=== PATIENT | male | born 1965 | race Caucasian/White ===

== ENCOUNTER 2021-08-09 10:17 | Inpatient (IN) ==
[2021-08-09] MEDS ORDERED: niCARdipine 25 MG/10 ML VIAL IV ONE (10:33)
[2021-08-09] MEDS ORDERED: DILTIAZEM 100 MG VIAL.ADD IV ONE (10:33)
[2021-08-09] MEDS ORDERED: DILTIAZEM 25 MG/5 ML VIAL IV STA (10:33)
[2021-08-09] MEDS ORDERED: DILTIAZEM 25 MG/5 ML VIAL IV ONE (10:37)
[2021-08-09] MEDS: DILTIAZEM INJ 100 MG in SODIUM CHLORIDE 0.9% 100 ML IV SCH ×2 (10:38→18:57)
[2021-08-09 10:39] LABS: Basophils # 0.1 10*3/uL (0.0-0.2); Basophils % 0.6 % (0.0-0.8); Eosinophils % 0.2 % (0.00-10.9); Hematocrit 50.3 VOL% (42.0-52.0); Hemoglobin 16.5 GM/DL (14.0-18.0); Immature Granulocytes % 0.5 %; Immature Granulocytes Absolute 0.08 #; Lymphocytes # 1.5 10*3/uL (1.4-4.0); Lymphocytes % 9.5 % (21.2-54.2); Mean Corpuscular HGB Conc 32.8 GM/DL (32-36); Mean Corpuscular Volume 90.1 FL (87-102); Mean Platelet Volume 9.7 FL (9.6-12.0); Monocytes # 1.2 10*3/uL (0.11-0.8); Monocytes % 7.7 % (1.7-12.7); Neutrophils % 81.5 % (38.7-73.9); Platelet Count 279 T/CUMM (130-400); Red Blood Count 5.58 MC/CUMM (3.8-5.5); Red Cell Distribution Width 13.7 % (9.3-17.3)
[2021-08-09 10:59] LABS: Albumin 3.6 G/DL (3.4-5.0); Bilirubin,Total 1.8 MG/DL (0.20-1.00); Calcium 9.1 MG/DL (8.5-10.1); Osmolality,Calculated 277.8 MOS/KG (273-304); Potassium 4.1 MMOL/L (3.5-5.1); Total Protein 7.2 G/DL (6.4-8.2)
[2021-08-09 11:15] LABS: Free T4 (Free Thyroxine) 0.92 NG/DL (0.76-1.46); Thyroid Stimulating Hormone 2.08 uIU/ml (0.358-3.74)
[2021-08-09] MEDS ORDERED: ACETAMINOPHEN 325 MG TABLET PO PRN (13:51)
[2021-08-09] MEDS ORDERED: GLUCAGON 1 MG VIAL IM PRN (13:51)
[2021-08-09] MEDS ORDERED: hydrALAZINE 20 MG/1 ML VIAL IV PRN (13:51)
[2021-08-09] MEDS ORDERED: MAGNESIUM SULF RIDER 2 GM/50 ML PREMIX IV ONE (13:51)
[2021-08-09] MEDS ORDERED: ONDANSETRON 4 MG/2 ML VIAL IV PRN (13:51)
[2021-08-09] MEDS ORDERED: DEXTROSE 10% 250 ML BAG IV PRN (13:55)
[2021-08-09] MEDS ORDERED: LACTATED RINGERS 1,000 ML IV SCH (14:00)
[2021-08-09] MEDS ORDERED: ENOXAPARIN 80 MG/0.8 ML SYRINGE SUBCUT ONE (14:02)
[2021-08-09] MEDS ORDERED: PNEUMOCOCCAL VACCINE (13 VALENT) 0.5 ML SYRINGE IM ONE (14:21)
[2021-08-09] MEDS ORDERED: ENOXAPARIN 40 MG/0.4 ML SYRINGE SUBCUT SCH (15:00)
[2021-08-09] MEDS ORDERED: SODIUM CHLORIDE 0.9% 1,000 ML IV SCH (15:00)
[2021-08-09] MEDS: ASCORBIC ACID 500 MG TABLET PO SCH ×2 (15:20→20:38)
[2021-08-09] MEDS: INSULIN LISPRO 100 UNIT/ML SUBCUT SCH ×2 (15:33→20:38)
[2021-08-09 17:22] LABS: Mucus,Urine Few /LPF (Occasional); RBC,Urine 2 /HPF (0-4); Squamous Epithelial Cell,Urine Occasional /HPF (0-10)
[2021-08-09 17:27] LABS: Bilirubin,Urine Small mg/dL (Negative); Blood, Urine Trace mg/dL (Negative); Glucose,Urine (UA) >1000 mg/dL (Negative); Ketones,Urine 15 mg/dL (Negative); Nitrite,Urine Negative (Negative); Protein,Urine 100 mg/dL (Negative); Urine Appearance Clear (Clear); Urine Color Yellow (Yellow); Urine Specific Gravity 1.025 (1.001-1.035)
[2021-08-09] MEDS: APIXABAN 5 MG TABLET PO SCH (20:38)
[2021-08-09] MEDS: carvediloL 6.25 MG TABLET PO SCH (20:38)
[2021-08-10 05:37] LABS: Basophils # 0.1 10*3/uL (0.0-0.2); Basophils % 0.8 % (0.0-0.8); Eosinophils # 0.2 10*3/uL (0.0-0.87); Eosinophils % 1.4 % (0.00-10.9); Hematocrit 50.8 VOL% (42.0-52.0); Hemoglobin 16.3 GM/DL (14.0-18.0); Immature Granulocytes % 0.5 %; Immature Granulocytes Absolute 0.06 #; Lymphocytes # 1.5 10*3/uL (1.4-4.0); Lymphocytes % 13.3 % (21.2-54.2); Mean Corpuscular HGB Conc 32.1 GM/DL (32-36); Mean Corpuscular Volume 91.9 FL (87-102); Mean Platelet Volume 9.9 FL (9.6-12.0); Monocytes # 0.9 10*3/uL (0.11-0.8); Platelet Count 235 T/CUMM (130-400); Red Blood Count 5.53 MC/CUMM (3.8-5.5); Red Cell Distribution Width 14.1 % (9.3-17.3)
[2021-08-10 05:55] LABS: Calcium 8.8 MG/DL (8.5-10.1); Osmolality,Calculated 281.7 MOS/KG (273-304); Potassium 4.2 MMOL/L (3.5-5.1); Risk Ratio 3.37
[2021-08-10] MEDS: ASPIRIN CHEW 81 MG TABLET PO SCH (08:17)
[2021-08-10] MEDS: ASCORBIC ACID 500 MG TABLET PO SCH ×2 (08:17→20:23)
[2021-08-10] MEDS: APIXABAN 5 MG TABLET PO SCH (08:17)
[2021-08-10] MEDS: carvediloL 6.25 MG TABLET PO SCH ×2 (08:17→20:23)
[2021-08-10] MEDS: INSULIN LISPRO 100 UNIT/ML SUBCUT SCH ×4 (08:18→20:29)
[2021-08-10] MEDS ORDERED: lisinopriL 10 MG TABLET PO SCH (09:00)
[2021-08-10] MEDS ORDERED: POTASSIUM CHLORIDE RIDER 10 MEQ/100 ML PREMIX IV PRN (13:01)
[2021-08-10] MEDS ORDERED: MAGNESIUM SULF RIDER 2 GM/50 ML PREMIX IV PRN (13:01)
[2021-08-10] MEDS: DAPAGLIFLOZIN 10 MG TABLET PO SCH (13:24)
[2021-08-10] MEDS: SPIRONOLACTONE 25 MG TABLET PO SCH (13:24)
[2021-08-11 03:43] LABS: Basophils # 0.1 10*3/uL (0.0-0.2); Basophils % 0.8 % (0.0-0.8); Eosinophils # 0.2 10*3/uL (0.0-0.87); Eosinophils % 1.3 % (0.00-10.9); Hematocrit 48.2 VOL% (42.0-52.0); Hemoglobin 15.5 GM/DL (14.0-18.0); Immature Granulocytes % 0.4 %; Immature Granulocytes Absolute 0.05 #; Lymphocytes # 2.1 10*3/uL (1.4-4.0); Lymphocytes % 15.5 % (21.2-54.2); Mean Corpuscular HGB Conc 32.2 GM/DL (32-36); Mean Corpuscular Volume 91.6 FL (87-102); Mean Platelet Volume 9.8 FL (9.6-12.0); Monocytes % 7.7 % (1.7-12.7); Neutrophils % 74.3 % (38.7-73.9); Platelet Count 241 T/CUMM (130-400); Red Blood Count 5.26 MC/CUMM (3.8-5.5); Red Cell Distribution Width 13.7 % (9.3-17.3); White Blood Count 13.3 T/CUMM (4-12)
[2021-08-11 04:02] LABS: Calcium 9.3 MG/DL (8.5-10.1); Osmolality,Calculated 281.5 MOS/KG (273-304); Potassium 3.9 MMOL/L (3.5-5.1)
[2021-08-11] MEDS ORDERED: SODIUM CHLORIDE 0.9% 1,000 ML IV SCH (06:00)
[2021-08-11] MEDS ORDERED: propofoL 200 MG/20 ML VIAL IV ONE ×2 (07:15→07:51)
[2021-08-11] MEDS ORDERED: ETOMIDATE 40 MG/20 ML VIAL IV ONE (07:15)
[2021-08-11] MEDS ORDERED: LIDOCAINE 2% 5 ML VIAL ONE (07:15)
[2021-08-11] MEDS ORDERED: LOSARTAN 25 MG TABLET PO SCH (09:00)
[2021-08-11] MEDS: SPIRONOLACTONE 25 MG TABLET PO SCH (09:22)
[2021-08-11] MEDS: carvediloL 6.25 MG TABLET PO SCH ×2 (09:22→20:39)
[2021-08-11] MEDS: ASCORBIC ACID 500 MG TABLET PO SCH ×2 (09:22→20:39)
[2021-08-11] MEDS: ASPIRIN CHEW 81 MG TABLET PO SCH (09:22)
[2021-08-11] MEDS: DAPAGLIFLOZIN 10 MG TABLET PO SCH (09:22)
[2021-08-11] MEDS: ENOXAPARIN 120 MG/0.8 ML SYRINGE SUBCUT SCH ×2 (09:23→20:40)
[2021-08-11] MEDS: INSULIN LISPRO 100 UNIT/ML SUBCUT SCH ×4 (09:23→20:40)
[2021-08-12 05:33] LABS: Basophils # 0.1 10*3/uL (0.0-0.2); Basophils % 0.6 % (0.0-0.8); Eosinophils # 0.2 10*3/uL (0.0-0.87); Eosinophils % 1.3 % (0.00-10.9); Hematocrit 50.4 VOL% (42.0-52.0); Hemoglobin 16.5 GM/DL (14.0-18.0); Immature Granulocytes % 0.6 %; Immature Granulocytes Absolute 0.07 #; Lymphocytes % 15.5 % (21.2-54.2); Mean Corpuscular HGB Conc 32.7 GM/DL (32-36); Mean Corpuscular Volume 89.8 FL (87-102); Monocytes # 1.1 10*3/uL (0.11-0.8); Monocytes % 8.7 % (1.7-12.7); Neutrophils % 73.3 % (38.7-73.9); Platelet Count 264 T/CUMM (130-400); Red Blood Count 5.61 MC/CUMM (3.8-5.5); Red Cell Distribution Width 13.7 % (9.3-17.3); White Blood Count 12.7 T/CUMM (4-12)
[2021-08-12 06:02] LABS: Calcium 9.2 MG/DL (8.5-10.1); Osmolality,Calculated 278.7 MOS/KG (273-304); Potassium 4.3 MMOL/L (3.5-5.1)
[2021-08-12 06:08] LABS: Albumin 3.4 G/DL (3.4-5.0); Bilirubin,Direct 0.21 MG/DL (0.0-0.20); Bilirubin,Indirect 1.3 MG/DL (0.0-1.0); Bilirubin,Total 1.5 MG/DL (0.20-1.00)
[2021-08-12] MEDS: INSULIN LISPRO 100 UNIT/ML SUBCUT SCH ×4 (07:38→21:26)
[2021-08-12] MEDS ORDERED: LIDOCAINE 1%/EPI INJ 20 ML VIAL ONE (07:57)
[2021-08-12] MEDS ORDERED: HEPARIN/NACL 0.9% 2 UNITS/ML 2,000 UNIT/1,000 ML BAG IV ONE (07:57)
[2021-08-12] MEDS ORDERED: diphenhydrAMINE CAP 25 MG CAPSULE ONE (07:58)
[2021-08-12] MEDS ORDERED: DIAZEPAM 5 MG TABLET ONE (07:58)
[2021-08-12] MEDS ORDERED: DIAZEPAM 5 MG TABLET PO ONE ×2 (08:07→09:30)
[2021-08-12] MEDS ORDERED: diphenhydrAMINE CAP 50 MG CAPSULE PO ONE ×2 (08:08→09:30)
[2021-08-12] MEDS: carvediloL 6.25 MG TABLET PO SCH ×2 (08:13→21:25)
[2021-08-12] MEDS: SPIRONOLACTONE 25 MG TABLET PO SCH (08:13)
[2021-08-12] MEDS: SACUBITRIL/VALSARTAN 49-51 MG TABLET PO SCH ×2 (08:13→21:26)
[2021-08-12] MEDS: ASPIRIN CHEW 81 MG TABLET PO SCH (08:13)
[2021-08-12] MEDS: DAPAGLIFLOZIN 10 MG TABLET PO SCH (08:13)
[2021-08-12] MEDS: ENOXAPARIN 120 MG/0.8 ML SYRINGE SUBCUT SCH ×2 (08:14→21:26)
[2021-08-12] MEDS: ASCORBIC ACID 500 MG TABLET PO SCH ×2 (08:14→21:26)
[2021-08-12] MEDS ORDERED: MIDAZOLAM 2 MG/2 ML VIAL ONE (08:18)
[2021-08-12] MEDS ORDERED: fentaNYL 100 MCG/2 ML VIAL ONE (08:19)
[2021-08-12] MEDS ORDERED: GLUCAGON 1 MG VIAL IM PRN (10:06)
[2021-08-12] MEDS ORDERED: DEXTROSE 50% 25 GM/50 ML VIAL IV PRN (10:06)
[2021-08-12] MEDS: ROSUVASTATIN 20 MG TABLET PO SCH (10:11)
[2021-08-12] MEDS: SODIUM CHLORIDE 0.9% 1,000 ML IV SCH (10:33)
[2021-08-12] MEDS ORDERED: HEPARIN DRIP 25,000 UNITS/500 ML PREMIX IV SCH (12:00)
[2021-08-12] MEDS: CHLORHEXIDINE 0.12% ORAL RINSE 60 ML BOTTLE SWISH/SPIT SCH (21:41)
[2021-08-13 04:44] LABS: Basophils # 0.1 10*3/uL (0.0-0.2); Eosinophils # 0.2 10*3/uL (0.0-0.87); Eosinophils % 1.8 % (0.00-10.9); Hemoglobin 17.4 GM/DL (14.0-18.0); Immature Granulocytes % 0.7 %; Immature Granulocytes Absolute 0.09 #; Lymphocytes # 1.9 10*3/uL (1.4-4.0); Lymphocytes % 14.8 % (21.2-54.2); Mean Corpuscular HGB Conc 32.2 GM/DL (32-36); Mean Corpuscular Volume 91.7 FL (87-102); Mean Platelet Volume 9.6 FL (9.6-12.0); Monocytes # 1.2 10*3/uL (0.11-0.8); Monocytes % 9.4 % (1.7-12.7); Neutrophils % 72.3 % (38.7-73.9); Platelet Count 322 T/CUMM (130-400); Red Blood Count 5.89 MC/CUMM (3.8-5.5); Red Cell Distribution Width 13.6 % (9.3-17.3); White Blood Count 12.5 T/CUMM (4-12)
[2021-08-13 05:10] LABS: Calcium 9.2 MG/DL (8.5-10.1); Osmolality,Calculated 279.8 MOS/KG (273-304)
[2021-08-13] MEDS: SACUBITRIL/VALSARTAN 49-51 MG TABLET PO SCH ×2 (08:57→21:01)
[2021-08-13] MEDS: ENOXAPARIN 120 MG/0.8 ML SYRINGE SUBCUT SCH ×2 (08:57→22:07)
[2021-08-13] MEDS: INSULIN LISPRO 100 UNIT/ML SUBCUT SCH ×4 (08:57→22:06)
[2021-08-13] MEDS: SPIRONOLACTONE 25 MG TABLET PO SCH (08:58)
[2021-08-13] MEDS: ASCORBIC ACID 500 MG TABLET PO SCH ×2 (08:58→21:01)
[2021-08-13] MEDS: DAPAGLIFLOZIN 10 MG TABLET PO SCH (08:58)
[2021-08-13] MEDS: ASPIRIN CHEW 81 MG TABLET PO SCH (08:58)
[2021-08-13] MEDS: ROSUVASTATIN 20 MG TABLET PO SCH (08:58)
[2021-08-13] MEDS: CHLORHEXIDINE 0.12% ORAL RINSE 60 ML BOTTLE SWISH/SPIT SCH ×2 (08:59→21:01)
[2021-08-13] MEDS: carvediloL 6.25 MG TABLET PO SCH (09:03)
[2021-08-13] MEDS: SODIUM CHLORIDE 0.9% 1,000 ML IV SCH (10:31)
[2021-08-13] MEDS ORDERED: carvediloL 6.25 MG TABLET PO ONE (11:04)
[2021-08-13] MEDS: carvediloL 12.5 MG TABLET PO SCH (21:01)
[2021-08-14] MEDS: INSULIN LISPRO 100 UNIT/ML SUBCUT SCH ×4 (07:44→21:47)
[2021-08-14] MEDS: ENOXAPARIN 120 MG/0.8 ML SYRINGE SUBCUT SCH ×2 (08:40→21:48)
[2021-08-14] MEDS: carvediloL 12.5 MG TABLET PO SCH ×2 (08:40→21:28)
[2021-08-14] MEDS: CHLORHEXIDINE 0.12% ORAL RINSE 60 ML BOTTLE SWISH/SPIT SCH ×2 (08:40→21:48)
[2021-08-14] MEDS: SACUBITRIL/VALSARTAN 49-51 MG TABLET PO SCH ×2 (08:40→21:28)
[2021-08-14] MEDS: ASPIRIN CHEW 81 MG TABLET PO SCH (08:40)
[2021-08-14] MEDS: DAPAGLIFLOZIN 10 MG TABLET PO SCH (08:40)
[2021-08-14] MEDS: ASCORBIC ACID 500 MG TABLET PO SCH ×2 (08:40→21:48)
[2021-08-14] MEDS: SPIRONOLACTONE 25 MG TABLET PO SCH (08:40)
[2021-08-14] MEDS: ROSUVASTATIN 20 MG TABLET PO SCH (08:40)
[2021-08-14] MEDS: SODIUM CHLORIDE 0.9% 1,000 ML IV SCH (09:47)
[2021-08-15 05:43] LABS: Calcium 9.2 MG/DL (8.5-10.1); Potassium 4.4 MMOL/L (3.5-5.1)
[2021-08-15] MEDS: SACUBITRIL/VALSARTAN 49-51 MG TABLET PO SCH ×2 (08:36→21:34)
[2021-08-15] MEDS: INSULIN LISPRO 100 UNIT/ML SUBCUT SCH ×4 (08:36→21:34)
[2021-08-15] MEDS: DAPAGLIFLOZIN 10 MG TABLET PO SCH (08:36)
[2021-08-15] MEDS: ENOXAPARIN 120 MG/0.8 ML SYRINGE SUBCUT SCH ×2 (08:36→21:34)
[2021-08-15] MEDS: ASPIRIN CHEW 81 MG TABLET PO SCH (08:36)
[2021-08-15] MEDS: glipiZIDE 5 MG TABLET PO SCH (08:36)
[2021-08-15] MEDS: SPIRONOLACTONE 25 MG TABLET PO SCH (08:37)
[2021-08-15] MEDS: CHLORHEXIDINE 0.12% ORAL RINSE 60 ML BOTTLE SWISH/SPIT SCH ×2 (08:37→21:34)
[2021-08-15] MEDS: carvediloL 25 MG TABLET PO SCH ×2 (08:37→21:34)
[2021-08-15] MEDS: ROSUVASTATIN 20 MG TABLET PO SCH (08:37)
[2021-08-15] MEDS: ASCORBIC ACID 500 MG TABLET PO SCH ×2 (08:37→21:34)
[2021-08-15] MEDS: SODIUM CHLORIDE 0.9% 1,000 ML IV SCH (09:33)
[2021-08-15] MEDS: CETIRIZINE 10 MG TABLET PO SCH (10:09)
[2021-08-16] MEDS: ENOXAPARIN 120 MG/0.8 ML SYRINGE SUBCUT SCH (08:24)
[2021-08-16] MEDS: ASPIRIN CHEW 81 MG TABLET PO SCH (08:24)
[2021-08-16] MEDS: INSULIN LISPRO 100 UNIT/ML SUBCUT SCH ×4 (08:24→20:51)
[2021-08-16] MEDS: carvediloL 25 MG TABLET PO SCH ×2 (08:25→20:51)
[2021-08-16] MEDS: DAPAGLIFLOZIN 10 MG TABLET PO SCH (08:25)
[2021-08-16] MEDS: SACUBITRIL/VALSARTAN 49-51 MG TABLET PO SCH ×2 (08:25→20:51)
[2021-08-16] MEDS: glipiZIDE 5 MG TABLET PO SCH (08:26)
[2021-08-16] MEDS: ROSUVASTATIN 20 MG TABLET PO SCH (08:26)
[2021-08-16] MEDS: CHLORHEXIDINE 0.12% ORAL RINSE 60 ML BOTTLE SWISH/SPIT SCH ×2 (08:26→20:51)
[2021-08-16] MEDS: CETIRIZINE 10 MG TABLET PO SCH (08:26)
[2021-08-16] MEDS: ASCORBIC ACID 500 MG TABLET PO SCH ×2 (08:26→20:51)
[2021-08-16] MEDS: SPIRONOLACTONE 25 MG TABLET PO SCH (08:26)
[2021-08-16] MEDS ORDERED: AZITHROMYCIN 250 MG TABLET PO ONE (09:53)
[2021-08-16] MEDS ORDERED: cefTRIAXone 1,000 MG in SODIUM CHLORIDE 0.9% 100 ML IV SCH (10:00)
[2021-08-16] MEDS ORDERED: CEFUROXIME INJ 1,500 MG in SODIUM CHLORIDE 0.9% 100 ML IV ONE (10:06)
[2021-08-16 10:21] LABS: Basophils # 0.1 10*3/uL (0.0-0.2); Basophils % 0.8 % (0.0-0.8); Eosinophils % 0.3 % (0.00-10.9); Hematocrit 48.2 VOL% (42.0-52.0); Hemoglobin 15.8 GM/DL (14.0-18.0); Immature Granulocytes % 0.6 %; Immature Granulocytes Absolute 0.05 #; Lymphocytes # 0.8 10*3/uL (1.4-4.0); Lymphocytes % 8.6 % (21.2-54.2); Mean Corpuscular HGB Conc 32.8 GM/DL (32-36); Mean Corpuscular Volume 90.3 FL (87-102); Mean Platelet Volume 9.4 FL (9.6-12.0); Monocytes # 1.2 10*3/uL (0.11-0.8); Monocytes % 13.3 % (1.7-12.7); Neutrophils % 76.4 % (38.7-73.9); Platelet Count 235 T/CUMM (130-400); Red Blood Count 5.34 MC/CUMM (3.8-5.5); Red Cell Distribution Width 13.7 % (9.3-17.3); White Blood Count 9.1 T/CUMM (4-12)
[2021-08-16 10:42] LABS: Bilirubin,Total 0.9 MG/DL (0.20-1.00); Calcium 8.9 MG/DL (8.5-10.1); Osmolality,Calculated 280.2 MOS/KG (273-304); Potassium 4.2 MMOL/L (3.5-5.1); Total Protein 7.1 G/DL (6.4-8.2)
[2021-08-16] MEDS: CHLORHEXIDINE 4% SOLN 118 ML BOTTLE TOP SCH ×2 (15:02→21:51)
[2021-08-16 16:34] LABS: Arterial Base Excess iSTAT 0 MMOL/L (-2.5-2.5); Arterial O2 Saturation iSTAT 96 % (95-100); Arterial PCO2 iSTAT 38 MM HG (35-48); Arterial PO2 iSTAT 85 MM HG (80-95); Arterial Total CO2 iSTAT 25 MMO/L (23-27); Arterial pH iSTAT 7.409 (7.35-7.45)
[2021-08-17] MEDS ORDERED: PAPAVERINE 60 MG/2 ML VIAL ONE (04:23)
[2021-08-17] MEDS ORDERED: VANCOMYCIN 1,000 MG VIAL ONE (04:24)
[2021-08-17] MEDS ORDERED: VANCOMYCIN 500 MG VIAL ONE (04:24)
[2021-08-17 04:32] LABS: Basophils # 0.1 10*3/uL (0.0-0.2); Basophils % 0.9 % (0.0-0.8); Eosinophils # 0.2 10*3/uL (0.0-0.87); Eosinophils % 1.6 % (0.00-10.9); Hematocrit 47.6 VOL% (42.0-52.0); Hemoglobin 15.2 GM/DL (14.0-18.0); Immature Granulocytes % 0.5 %; Immature Granulocytes Absolute 0.05 #; Lymphocytes # 1.5 10*3/uL (1.4-4.0); Lymphocytes % 15.7 % (21.2-54.2); Mean Corpuscular HGB Conc 31.9 GM/DL (32-36); Mean Corpuscular Volume 92.1 FL (87-102); Mean Platelet Volume 9.8 FL (9.6-12.0); Monocytes # 1.3 10*3/uL (0.11-0.8); Monocytes % 14.3 % (1.7-12.7); Platelet Count 274 T/CUMM (130-400); Red Blood Count 5.17 MC/CUMM (3.8-5.5); Red Cell Distribution Width 13.6 % (9.3-17.3); White Blood Count 9.2 T/CUMM (4-12)
[2021-08-17] MEDS: CHLORHEXIDINE 4% SOLN 118 ML BOTTLE TOP SCH (04:44)
[2021-08-17 04:53] LABS: Calcium 8.8 MG/DL (8.5-10.1); Osmolality,Calculated 280.7 MOS/KG (273-304); Potassium 4.4 MMOL/L (3.5-5.1)
[2021-08-17] MEDS ORDERED: DIAZEPAM 5 MG TABLET PO ONE (05:30)
[2021-08-17] MEDS ORDERED: FAMOTIDINE 20 MG TABLET PO ONE (05:30)
[2021-08-17] MEDS ORDERED: AMINOCAPROIC ACID 5,000 MG/20 ML VIAL ONE (06:02)
[2021-08-17] MEDS ORDERED: SEVOFLURANE 1 UNIT/15 MINUTE INH ONE ×5 (06:02→11:55)
[2021-08-17] MEDS ORDERED: MINERAL OIL/PETROLATUM OPH OINT 3.5 GM TUBE ONE (06:02)
[2021-08-17] MEDS ORDERED: CALCIUM CHLORIDE 1,000 MG/10 ML VIAL IV ONE ×2 (06:02→11:34)
[2021-08-17] MEDS ORDERED: ETOMIDATE 40 MG/20 ML VIAL IV ONE (06:02)
[2021-08-17] MEDS ORDERED: NITROGLYCERIN DRIP 50 MG/250 ML BOTTLE IV ONE (06:02)
[2021-08-17] MEDS ORDERED: SODIUM CHLORIDE 0.9% 1,000 ML IV ONE (06:02)
[2021-08-17] MEDS ORDERED: SUFentanil 250 MCG/5 ML AMP ONE (06:02)
[2021-08-17] MEDS ORDERED: PHENYLEPHRINE DRIP 20 MG/250 ML PREMIX IV ONE (06:02)
[2021-08-17] MEDS ORDERED: MIDAZOLAM 10 MG/2 ML VIAL ONE ×3 (06:02)
[2021-08-17] MEDS ORDERED: LACTATED RINGERS 1,000 ML IV ONE (06:02)
[2021-08-17] MEDS ORDERED: ePHEDrine 50 MG/ML VIAL ONE (06:02)
[2021-08-17] MEDS ORDERED: VECURONIUM 10 MG VIAL IV ONE (06:02)
[2021-08-17] MEDS ORDERED: HEPARIN/NACL 0.9% 2 UNITS/ML 1,000 UNIT/500 ML BAG IV ONE (06:02)
[2021-08-17] MEDS ORDERED: LIDOCAINE 2% 5 ML VIAL ONE ×2 (06:02→13:07)
[2021-08-17] MEDS ORDERED: SODIUM CHLORIDE 0.9% 250 ML IV ONE ×2 (06:02→11:55)
[2021-08-17] MEDS: CEFUROXIME INJ 1,500 MG in SODIUM CHLORIDE 0.9% 100 ML IV ONE ×2 (07:30→08:50)
[2021-08-17 07:48] LABS: ABG Base Excess -1.1 MMOL/L (-2.5-2.5); ABG HCO3 23.6 MMOL/L (20-26); ABG Oxygen Saturation 99.7 % (95-100); ABG PCO2 43.6 MM HG (35-48); Glucose Heart Surgery 165 MG/DL (74-106); Hematocrit Heart Surgery 46.6 PERCENT (42-52); Hemoglobin Heart Surgery 15.2 G/DL (14.0-18.0); Ionized Calcium Arterial 1.17 MMOL/L (1.21-1.46); PCO2 Patient Temp Arterial 43.6 MMHG; Patient Temperature 37 CELCIUS; Potassium Heart/CVR 4.4 MMOL/L (3.5-5.1); Sodium Heart/CVR 137 MMOL/L (135-145)
[2021-08-17] MEDS ORDERED: ESMOLOL 100 MG/10 ML VIAL IV ONE (07:56)
[2021-08-17] MEDS ORDERED: DOBUTamine 500 MG/250 ML PREMIX IV ONE ×2 (08:21→12:30)
[2021-08-17] MEDS ORDERED: AMIODARONE 150 MG/3 ML VIAL ONE (08:21)
[2021-08-17] MEDS ORDERED: SODIUM BICARBONATE 50 MEQ/50 ML VIAL IV ONE ×2 (08:32→13:09)
[2021-08-17] MEDS ORDERED: POTASSIUM CHLORIDE RIDER 20 MEQ/100 ML PREMIX IV ONE (08:33)
[2021-08-17] MEDS ORDERED: CALCIUM CHLORIDE 1,000 MG/10 ML SYRINGE IV ONE (08:33)
[2021-08-17] MEDS ORDERED: NITROPRUSSIDE 50 MG/2 ML VIAL ONE (08:33)
[2021-08-17] MEDS ORDERED: PHENYLEPHRINE DRIP 40 MG/250 ML PREMIX IV ONE (08:33)
[2021-08-17 08:35] LABS: Mucus,Urine Occasional /LPF (Occasional); RBC,Urine 1 /HPF (0-4); Squamous Epithelial Cell,Urine Occasional /HPF (0-10)
[2021-08-17 08:39] LABS: Bilirubin,Urine Negative (Negative); Blood, Urine Trace mg/dL (Negative); Glucose,Urine (UA) 500 mg/dL (Negative); Ketones,Urine 40 mg/dL (Negative); Nitrite,Urine Negative (Negative); Protein,Urine Negative (Negative); Urine Appearance Clear (Clear); Urine Color Yellow (Yellow); Urine pH 5.5 (4.5-8.0)
[2021-08-17] MEDS: SPIRONOLACTONE 25 MG TABLET PO SCH (08:51)
[2021-08-17] MEDS: glipiZIDE 5 MG TABLET PO SCH (08:51)
[2021-08-17] MEDS: INSULIN LISPRO 100 UNIT/ML SUBCUT SCH ×2 (08:51→18:07)
[2021-08-17] MEDS: ASPIRIN CHEW 81 MG TABLET PO SCH (08:51)
[2021-08-17] MEDS: carvediloL 25 MG TABLET PO SCH (08:51)
[2021-08-17] MEDS: DAPAGLIFLOZIN 10 MG TABLET PO SCH (08:52)
[2021-08-17] MEDS: ROSUVASTATIN 20 MG TABLET PO SCH (08:52)
[2021-08-17] MEDS: CHLORHEXIDINE 0.12% ORAL RINSE 60 ML BOTTLE SWISH/SPIT SCH ×2 (08:52→20:48)
[2021-08-17] MEDS: CHOLECALCIFEROL 1,000 UNIT TABLET PO SCH (08:52)
[2021-08-17] MEDS: SACUBITRIL/VALSARTAN 49-51 MG TABLET PO SCH (08:52)
[2021-08-17] MEDS: ASCORBIC ACID 500 MG TABLET PO SCH ×2 (08:52→20:48)
[2021-08-17] MEDS: AZITHROMYCIN 250 MG TABLET PO SCH (08:53)
[2021-08-17] MEDS: CETIRIZINE 10 MG TABLET PO SCH (08:53)
[2021-08-17] MEDS ORDERED: ZINC GLUCONATE 50 MG TABLET PO SCH (09:00)
[2021-08-17 09:38] LABS: PCO2 Patient Temp Venous 45.9 MM HG; PH Patient Temp Venous 7.349; Potassium Heart/CVR 5.3 MMOL/L (3.5-5.1); VBG Base Excess -0.7 MEQ/L (0-4); VBG HCO3 23.6 MEQ/L (24-28); VBG Oxygen Saturation 83.9 %; VBG PCO2 50.6 MMHG (41-51); VBG PH 7.321; VBG Total CO2 23.4 MMOL/L
[2021-08-17 10:05] LABS: Hematocrit Heart Surgery 39.2 PERCENT (42-52); Hemoglobin Heart Surgery 12.7 G/DL (14.0-18.0); PCO2 Patient Temp Venous 41.8 MM HG; PH Patient Temp Venous 7.366; PO2 Patient Temp Venous 48.4 MM HG; Potassium Heart/CVR 5.6 MMOL/L (3.5-5.1); VBG Base Excess -1.5 MEQ/L (0-4); VBG HCO3 22.9 MEQ/L (24-28); VBG Oxygen Saturation 86.6 %; VBG PCO2 48.3 MMHG (41-51); VBG PH 7.323; VBG PO2 59.3 MMHG (17-40); VBG Total CO2 22.3 MMOL/L
[2021-08-17] MEDS ORDERED: FAMOTIDINE 20 MG/2 ML VIAL IV ONE (10:34)
[2021-08-17] MEDS ORDERED: diphenhydrAMINE 50 MG/1 ML VIAL ONE (10:34)
[2021-08-17 10:35] LABS: Hematocrit Heart Surgery 40.3 PERCENT (42-52); Hemoglobin Heart Surgery 13.1 G/DL (14.0-18.0); PCO2 Patient Temp Venous 47.6 MM HG; PH Patient Temp Venous 7.334; PO2 Patient Temp Venous 50.6 MM HG; VBG Base Excess -1.1 MEQ/L (0-4); VBG HCO3 23.2 MEQ/L (24-28); VBG Oxygen Saturation 83.1 %; VBG PH 7.32; VBG PO2 54.1 MMHG (17-40); VBG Total CO2 22.8 MMOL/L
[2021-08-17 10:37] LABS: Potassium Heart/CVR 6.1 MMOL/L (3.5-5.1)
[2021-08-17] MEDS ORDERED: INSULIN REGULAR 100 UNIT/ML ONE (10:42)
[2021-08-17 11:11] LABS: Hemoglobin Heart Surgery 12.4 G/DL (14.0-18.0); PCO2 Patient Temp Venous 48.9 MM HG; PH Patient Temp Venous 7.334; PO2 Patient Temp Venous 47.2 MM HG; Potassium Heart/CVR 5.2 MMOL/L (3.5-5.1); VBG Base Excess -0.5 MEQ/L (0-4); VBG HCO3 23.6 MEQ/L (24-28); VBG Oxygen Saturation 76.8 %; VBG PCO2 48.9 MMHG (41-51); VBG PH 7.334; VBG PO2 47.2 MMHG (17-40); VBG Total CO2 23.2 MMOL/L
[2021-08-17] MEDS ORDERED: SODIUM CHLORIDE 0.9% 100 ML IV ONE (11:55)
[2021-08-17 12:05] LABS: ABG Base Excess -1.4 MMOL/L (-2.5-2.5); ABG HCO3 23.3 MMOL/L (20-26); ABG Oxygen Saturation 99.5 % (95-100); ABG PCO2 40.8 MM HG (35-48); ABG PH 7.373 (7.35-7.45); ABG TCO2 20.9 MMOL/L (23-27); Glucose Heart Surgery 302 MG/DL (74-106); Hematocrit Heart Surgery 39.6 PERCENT (42-52); Hemoglobin Heart Surgery 12.9 G/DL (14.0-18.0); Ionized Calcium Arterial 1.38 MMOL/L (1.21-1.46); PCO2 Patient Temp Arterial 40.8 MMHG; PH Patient Temp Arterial 7.373; Patient Temperature 37 CELCIUS; Potassium Heart/CVR 4.3 MMOL/L (3.5-5.1); Sodium Heart/CVR 133 MMOL/L (135-145)
[2021-08-17] MEDS ORDERED: ALBUMIN 5% 12.5 GM/250 ML VIAL IV PRN (12:14)
[2021-08-17] MEDS ORDERED: CHLORHEXIDINE 4% SOLN 118 ML BOTTLE TOP PRN (12:14)
[2021-08-17] MEDS ORDERED: MIDAZOLAM 2 MG/2 ML VIAL IV PRN (12:14)
[2021-08-17] MEDS ORDERED: POTASSIUM CHLORIDE RIDER 10 MEQ/100 ML PREMIX IV PRN (12:14)
[2021-08-17] MEDS ORDERED: ONDANSETRON 4 MG/2 ML VIAL IV PRN (12:14)
[2021-08-17] MEDS ORDERED: INSULIN REGULAR 100 UNIT/ML IV ONE (12:14)
[2021-08-17] MEDS ORDERED: VECURONIUM 10 MG VIAL IV PRN ×2 (12:14)
[2021-08-17] MEDS ORDERED: POTASSIUM CHLORIDE RIDER 20 MEQ/100 ML PREMIX IV PRN (12:14)
[2021-08-17] MEDS ORDERED: MIDAZOLAM 10 MG/2 ML VIAL IV PRN (12:14)
[2021-08-17] MEDS ORDERED: ACETAMINOPHEN 650 MG SUPP RECTAL PRN (12:14)
[2021-08-17] MEDS ORDERED: CALCIUM CHLORIDE 1,000 MG/10 ML SYRINGE IV PRN (12:14)
[2021-08-17] MEDS ORDERED: NITROPRUSSIDE 100 MG in DEXTROSE 5% 250 ML IV PRN (12:14)
[2021-08-17] MEDS ORDERED: DEXTROSE 10% 250 ML BAG IV PRN ×2 (12:14)
[2021-08-17] MEDS ORDERED: MAGNESIUM SULF RIDER 4 GM/100 ML PREMIX IV PRN (12:14)
[2021-08-17] MEDS ORDERED: MAGNESIUM SULF RIDER 2 GM/50 ML PREMIX IV PRN (12:14)
[2021-08-17] MEDS ORDERED: INSULIN REGULAR 100 UNIT/ML IV PRN (12:14)
[2021-08-17] MEDS ORDERED: DOBUTamine 500 MG/250 ML PREMIX IV PRN (12:28)
[2021-08-17] MEDS ORDERED: INSULIN REGULAR DRIP 100 ML IV SCH (12:30)
[2021-08-17] MEDS ORDERED: AMIODARONE 450 MG/9 ML VIAL IV ONE (12:30)
[2021-08-17] MEDS ORDERED: EPINEPHrine 1 MG/ML VIAL ONE (12:38)
[2021-08-17] MEDS: LACTATED RINGERS 250 ML IV PRN ×5 (13:00→16:17)
[2021-08-17] MEDS ORDERED: PROTAMINE SULFATE 50 MG/5 ML VIAL IV ONE ×2 (13:05→13:11)
[2021-08-17] MEDS ORDERED: methylPREDNISolone SOD SUC 1,000 MG/8 ML VIAL ONE (13:07)
[2021-08-17] MEDS ORDERED: ALBUMIN 25% 25 GM/100 ML VIAL IV ONE (13:07)
[2021-08-17] MEDS ORDERED: MAGNESIUM SULFATE 5 GM/10 ML VIAL IV ONE (13:07)
[2021-08-17] MEDS ORDERED: HEPARIN 10,000 UNIT/10 ML VIAL ONE (13:08)
[2021-08-17] MEDS ORDERED: DEXTROSE 5% KCL 20 MEQ 40 MEQ/2,000 ML BAG IV ONE (13:08)
[2021-08-17] MEDS ORDERED: PROTAMINE SULFATE 250 MG/25 ML VIAL IV ONE (13:08)
[2021-08-17] MEDS ORDERED: MANNITOL 12.5 GM/50 ML VIAL IV ONE (13:09)
[2021-08-17] MEDS ORDERED: FUROSEMIDE 20 MG/2 ML VIAL ONE (13:09)
[2021-08-17] MEDS: AMIODARONE INJ 450 MG in DEXTROSE 5% 241 ML IV SCH (13:27)
[2021-08-17] MEDS: SODIUM CHLORIDE 0.45% 1,000 ML IV SCH ×2 (13:27)
[2021-08-17 13:28] LABS: ABG Base Excess -2.9 MMOL/L (-2.5-2.5); ABG HCO3 22.1 MMOL/L (20-26); ABG Oxygen Saturation 99.4 % (95-100); ABG PCO2 43.1 MM HG (35-48); ABG PH 7.336 (7.35-7.45); ABG TCO2 20.1 MMOL/L (23-27); Glucose Heart Surgery 333 MG/DL (74-106); Hematocrit Heart Surgery 42.4 PERCENT (42-52); Hemoglobin Heart Surgery 13.8 G/DL (14.0-18.0); Potassium Heart/CVR 4.8 MMOL/L (3.5-5.1)
[2021-08-17 13:31] LABS: Basophils # 0.1 10*3/uL (0.0-0.2); Basophils % 0.6 % (0.0-0.8); Eosinophils # 0.1 10*3/uL (0.0-0.87); Eosinophils % 0.4 % (0.00-10.9); Hematocrit 42.8 VOL% (42.0-52.0); Hemoglobin 13.6 GM/DL (14.0-18.0); Immature Granulocytes % 1.6 %; Immature Granulocytes Absolute 0.28 #; Lymphocytes # 0.7 10*3/uL (1.4-4.0); Lymphocytes % 3.9 % (21.2-54.2); Mean Corpuscular HGB Conc 31.8 GM/DL (32-36); Mean Corpuscular Volume 92.4 FL (87-102); Mean Platelet Volume 9.7 FL (9.6-12.0); Monocytes # 0.9 10*3/uL (0.11-0.8); Monocytes % 4.9 % (1.7-12.7); Neutrophils % 88.6 % (38.7-73.9); Platelet Count 249 T/CUMM (130-400); Red Blood Count 4.63 MC/CUMM (3.8-5.5); Red Cell Distribution Width 13.8 % (9.3-17.3); White Blood Count 17.9 T/CUMM (4-12)
[2021-08-17 13:47] LABS: INR 1.1; PT Patient Result 12.3 SECS (10.5-12.0); Partial Thromboplastin Time 28.3 SECS (23.7-32.9)
[2021-08-17 13:52] LABS: Albumin 2.8 G/DL (3.4-5.0); Bilirubin,Total 1.7 MG/DL (0.20-1.00); CKMB % 4.22 %; Calcium 9.3 MG/DL (8.5-10.1); Potassium 4.9 MMOL/L (3.5-5.1); Total Protein 6.2 G/DL (6.4-8.2)
[2021-08-17 14:00] LABS: High Sensitive Troponin I* 1790.2 ng/L (0-78)
[2021-08-17 15:31] LABS: ABG Base Excess -1.7 MMOL/L (-2.5-2.5); ABG Oxygen Saturation 98.1 % (95-100); ABG PCO2 40.7 MM HG (35-48); ABG TCO2 20.5 MMOL/L (23-27); Glucose Heart Surgery 242 MG/DL (74-106); Hematocrit Heart Surgery 40.7 PERCENT (42-52); Hemoglobin Heart Surgery 13.2 G/DL (14.0-18.0); Potassium Heart/CVR 4.6 MMOL/L (3.5-5.1)
[2021-08-17 15:52] LABS: Band Neutrophils 8 % (0-10); Eosinophils 1 % (0-10); Lymphocytes 2 % (20-55); Platelet Estimate Normal; Total Cells Counted 100
[2021-08-17] MEDS: MORPHINE 10 MG/1 ML VIAL IV PRN (16:11)
[2021-08-17 17:11] LABS: ABG Base Excess -1.1 MMOL/L (-2.5-2.5); ABG HCO3 23.5 MMOL/L (20-26); ABG Oxygen Saturation 98.9 % (95-100); ABG PCO2 41.8 MM HG (35-48); ABG TCO2 21.1 MMOL/L (23-27); Glucose Heart Surgery 210 MG/DL (74-106); Hematocrit Heart Surgery 41.4 PERCENT (42-52); Hemoglobin Heart Surgery 13.5 G/DL (14.0-18.0); Potassium Heart/CVR 4.7 MMOL/L (3.5-5.1)
[2021-08-17] MEDS: CEFUROXIME INJ 1,500 MG in SODIUM CHLORIDE 0.9% 100 ML IV SCH (20:49)
[2021-08-17 21:23] LABS: ABG Base Excess -2.1 MMOL/L (-2.5-2.5); ABG HCO3 22.6 MMOL/L (20-26); ABG Oxygen Saturation 98.4 % (95-100); ABG PH 7.348 (7.35-7.45); ABG TCO2 20.6 MMOL/L (23-27); Glucose Heart Surgery 206 MG/DL (74-106); Hematocrit Heart Surgery 42.1 PERCENT (42-52); Hemoglobin Heart Surgery 13.7 G/DL (14.0-18.0)
[2021-08-17 22:06] LABS: ABG HCO3 22.7 MMOL/L (20-26); ABG Oxygen Saturation 98.6 % (95-100); ABG PCO2 40.2 MM HG (35-48); ABG PH 7.368 (7.35-7.45); ABG TCO2 20.2 MMOL/L (23-27); Glucose Heart Surgery 181 MG/DL (74-106); Hematocrit Heart Surgery 41.1 PERCENT (42-52); Hemoglobin Heart Surgery 13.4 G/DL (14.0-18.0); Potassium Heart/CVR 4.5 MMOL/L (3.5-5.1)
[2021-08-17 23:10] LABS: CKMB % 4.41 %
[2021-08-17 23:12] LABS: High Sensitive Troponin I* 2078.6 ng/L (0-78)
[2021-08-17 23:12] LABS: ABG Base Excess -1.9 MMOL/L (-2.5-2.5); ABG HCO3 22.8 MMOL/L (20-26); ABG Oxygen Saturation 98.3 % (95-100); ABG PCO2 37.2 MM HG (35-48); ABG PH 7.392 (7.35-7.45); ABG TCO2 19.6 MMOL/L (23-27); Glucose Heart Surgery 176 MG/DL (74-106); Hematocrit Heart Surgery 41.6 PERCENT (42-52); Hemoglobin Heart Surgery 13.5 G/DL (14.0-18.0); Potassium Heart/CVR 4.5 MMOL/L (3.5-5.1)
[2021-08-18] MEDS: AMIODARONE INJ 450 MG in DEXTROSE 5% 241 ML IV SCH ×3 (00:11→17:09)
[2021-08-18] MEDS: MORPHINE 10 MG/1 ML VIAL IV PRN ×4 (00:16→21:37)
[2021-08-18] MEDS ORDERED: FUROSEMIDE 40 MG/4 ML VIAL IV ONE ×2 (01:11→05:51)
[2021-08-18 03:59] LABS: ABG Base Excess -2.9 MMOL/L (-2.5-2.5); ABG Oxygen Saturation 96.6 % (95-100); ABG PCO2 34.4 MM HG (35-48); ABG PH 7.398 (7.35-7.45); ABG PO2 91.3 MM HG (80-95); ABG TCO2 18.7 MMOL/L (23-27); Glucose Heart Surgery 135 MG/DL (74-106); Hematocrit Heart Surgery 38.3 PERCENT (42-52); Hemoglobin Heart Surgery 12.5 G/DL (14.0-18.0); Potassium Heart/CVR 4.6 MMOL/L (3.5-5.1)
[2021-08-18 04:03] LABS: Basophils % 0.1 % (0.0-0.8); Hematocrit 39.9 VOL% (42.0-52.0); Hemoglobin 12.6 GM/DL (14.0-18.0); Immature Granulocytes % 0.5 %; Immature Granulocytes Absolute 0.07 #; Lymphocytes # 0.8 10*3/uL (1.4-4.0); Lymphocytes % 5.5 % (21.2-54.2); Mean Corpuscular HGB Conc 31.6 GM/DL (32-36); Mean Corpuscular Volume 94.1 FL (87-102); Mean Platelet Volume 10.1 FL (9.6-12.0); Monocytes % 6.9 % (1.7-12.7); Platelet Count 248 T/CUMM (130-400); Red Blood Count 4.24 MC/CUMM (3.8-5.5); Red Cell Distribution Width 14.2 % (9.3-17.3); White Blood Count 14.1 T/CUMM (4-12)
[2021-08-18 04:20] LABS: Albumin 2.9 G/DL (3.4-5.0); Bilirubin,Direct 0.4 MG/DL (0.0-0.20); Bilirubin,Total 1.1 MG/DL (0.20-1.00); Calcium 8.2 MG/DL (8.5-10.1); Osmolality,Calculated 282.8 MOS/KG (273-304); Potassium 4.7 MMOL/L (3.5-5.1); Total Protein 6.1 G/DL (6.4-8.2)
[2021-08-18] MEDS: PHENYLEPHRINE DRIP 40 MG/250 ML PREMIX IV PRN ×3 (05:40→21:01)
[2021-08-18 06:00] LABS: CKMB % 3.69 %; High Sensitive Troponin I* 2187.3 ng/L (0-78)
[2021-08-18] MEDS ORDERED: GLUCAGON 1 MG VIAL IM PRN (07:52)
[2021-08-18] MEDS ORDERED: DEXTROSE 10% 250 ML BAG IV PRN (07:52)
[2021-08-18] MEDS: INSULIN REGULAR 100 UNIT/ML SUBCUT SCH ×4 (08:00→21:30)
[2021-08-18] MEDS: CHOLECALCIFEROL 1,000 UNIT TABLET PO SCH (08:01)
[2021-08-18] MEDS: ASCORBIC ACID 500 MG TABLET PO SCH ×2 (08:01→21:24)
[2021-08-18] MEDS: AZITHROMYCIN 250 MG TABLET PO SCH (08:01)
[2021-08-18] MEDS: ASPIRIN EC 81 MG TABLET PO SCH (08:01)
[2021-08-18] MEDS: CEFUROXIME INJ 1,500 MG in SODIUM CHLORIDE 0.9% 100 ML IV SCH ×2 (08:02→21:25)
[2021-08-18] MEDS: CHLORHEXIDINE 0.12% ORAL RINSE 60 ML BOTTLE SWISH/SPIT SCH ×2 (08:04→21:27)
[2021-08-18] MEDS: FAMOTIDINE 20 MG TABLET PO SCH ×2 (08:22→21:24)
[2021-08-18] MEDS ORDERED: PROMETHAZINE INJ 12.5 MG in SODIUM CHLORIDE 0.9% 50 ML IV ONE (08:38)
[2021-08-18] MEDS ORDERED: METOCLOPRAMIDE 10 MG/2 ML VIAL IV ONE (08:38)
[2021-08-18] MEDS ORDERED: PROMETHAZINE 25 MG/1 ML VIAL ONE (08:50)
[2021-08-18] MEDS ORDERED: FAMOTIDINE 20 MG TABLET PO SCH (09:00)
[2021-08-18] MEDS ORDERED: BACLOFEN 10 MG TABLET PO ONE (10:43)
[2021-08-18] MEDS ORDERED: chlorproMAZINE 25 MG TABLET PO PRN (11:01)
[2021-08-18] MEDS ORDERED: chlorproMAZINE INJ 50 MG in SODIUM CHLORIDE 0.9% 100 ML IV ONE (12:00)
[2021-08-18] MEDS: SODIUM CHLORIDE 0.45% 1,000 ML IV SCH ×2 (13:34→13:35)
[2021-08-18] MEDS ORDERED: METOCLOPRAMIDE 10 MG/2 ML VIAL IV PRN (14:42)
[2021-08-18] MEDS ORDERED: PROMETHAZINE INJ 12.5 MG in SODIUM CHLORIDE 0.9% 50 ML IV PRN (14:42)
[2021-08-18] MEDS ORDERED: BACLOFEN 10 MG TABLET PO SCH (15:00)
[2021-08-18 15:12] LABS: CKMB % 2.96 %
[2021-08-18] MEDS: oxyCODONE/ACETAMINOPHEN 5-325 MG TABLET PO PRN (15:18)
[2021-08-18 15:26] LABS: Calcium 7.6 MG/DL (8.5-10.1); Potassium 4.8 MMOL/L (3.5-5.1)
[2021-08-19] MEDS ORDERED: FUROSEMIDE 40 MG/4 ML VIAL IV ONE
[2021-08-19 01:22] VITALS: BP 135/74
[2021-08-19] MEDS: oxyCODONE/ACETAMINOPHEN 5-325 MG TABLET PO PRN ×2 (01:56→23:45)
[2021-08-19 05:10] LABS: CKMB % 2.01 %
[2021-08-19 05:11] LABS: High Sensitive Troponin I* 2031.5 ng/L (0-78)
[2021-08-19 05:13] LABS: Basophils % 0.2 % (0.0-0.8); Bilirubin,Direct 0.28 MG/DL (0.0-0.20); Bilirubin,Total 0.8 MG/DL (0.20-1.00); Calcium 7.9 MG/DL (8.5-10.1); Hematocrit 38.3 VOL% (42.0-52.0); Hemoglobin 12.1 GM/DL (14.0-18.0); Immature Granulocytes % 0.8 %; Immature Granulocytes Absolute 0.13 #; Lymphocytes % 6.1 % (21.2-54.2); Mean Corpuscular HGB Conc 31.6 GM/DL (32-36); Mean Corpuscular Volume 92.1 FL (87-102); Mean Platelet Volume 10.4 FL (9.6-12.0); Monocytes # 1.2 10*3/uL (0.11-0.8); Monocytes % 7.5 % (1.7-12.7); Neutrophils % 85.4 % (38.7-73.9); Osmolality,Calculated 286.2 MOS/KG (273-304); Platelet Count 250 T/CUMM (130-400); Potassium 4.4 MMOL/L (3.5-5.1); Red Blood Count 4.16 MC/CUMM (3.8-5.5); Red Cell Distribution Width 13.5 % (9.3-17.3); Total Protein 6.3 G/DL (6.4-8.2); White Blood Count 15.6 T/CUMM (4-12)
[2021-08-19] MEDS: AMIODARONE 200 MG TABLET PO SCH ×2 (07:56→21:00)
[2021-08-19] MEDS ORDERED: ROSUVASTATIN 20 MG TABLET PO SCH (09:00)
[2021-08-19] MEDS ORDERED: chlorproMAZINE 25 MG TABLET PO ONE (09:02)
[2021-08-19] MEDS: ASCORBIC ACID 500 MG TABLET PO SCH ×2 (09:16→21:01)
[2021-08-19] MEDS: CHOLECALCIFEROL 1,000 UNIT TABLET PO SCH (09:16)
[2021-08-19] MEDS: AZITHROMYCIN 250 MG TABLET PO SCH (09:17)
[2021-08-19] MEDS: glipiZIDE 5 MG TABLET PO SCH (09:17)
[2021-08-19] MEDS: FAMOTIDINE 20 MG TABLET PO SCH ×2 (09:17→21:01)
[2021-08-19] MEDS: ASPIRIN EC 81 MG TABLET PO SCH (09:18)
[2021-08-19] MEDS: SPIRONOLACTONE 25 MG TABLET PO SCH (09:23)
[2021-08-19] MEDS: AMIODARONE INJ 450 MG in DEXTROSE 5% 241 ML IV SCH (09:33)
[2021-08-19] MEDS: DOCUSATE SODIUM 100 MG CAPSULE PO SCH (09:34)
[2021-08-19] MEDS: CHLORHEXIDINE 0.12% ORAL RINSE 60 ML BOTTLE SWISH/SPIT SCH ×3 (09:34→21:01)
[2021-08-19] MEDS: INSULIN REGULAR 100 UNIT/ML SUBCUT SCH ×4 (10:00→21:01)
[2021-08-19] MEDS ORDERED: DEXTROSE 10% 250 ML BAG IV PRN (10:46)
[2021-08-19] MEDS ORDERED: GLUCAGON 1 MG VIAL IM PRN (10:46)
[2021-08-19] MEDS ORDERED: ALUMINUM/MAGNES/SIMETH MAX STR 30 ML UDCUP PO PRN (10:46)
[2021-08-19] MEDS ORDERED: ACETAMINOPHEN 325 MG TABLET PO PRN (10:46)
[2021-08-19] MEDS ORDERED: MAGNESIUM SULF RIDER 4 GM/100 ML PREMIX IV PRN (10:46)
[2021-08-19] MEDS ORDERED: MAGNESIUM SULF RIDER 2 GM/50 ML PREMIX IV PRN (10:46)
[2021-08-19] MEDS ORDERED: ZALEPLON 5 MG CAPSULE PO PRN (10:46)
[2021-08-19] MEDS ORDERED: MAGNESIUM HYDROXIDE SUSP 30 ML UDCUP PO PRN (10:46)
[2021-08-19] MEDS ORDERED: ONDANSETRON 4 MG/2 ML VIAL IV PRN (10:46)
[2021-08-19] MEDS ORDERED: POTASSIUM CHLORIDE 20 MEQ TABLET PO PRN (10:46)
[2021-08-19] MEDS: carvediloL 3.125 MG TABLET PO SCH ×2 (12:10→21:01)
[2021-08-19] MEDS: FERROUS SULFATE 325 MG TABLET PO SCH (12:10)
[2021-08-19] MEDS: APIXABAN 5 MG TABLET PO SCH (21:01)
[2021-08-20 03:39] LABS: Basophils % 0.2 % (0.0-0.8); Hematocrit 36.4 VOL% (42.0-52.0); Hemoglobin 11.6 GM/DL (14.0-18.0); Immature Granulocytes % 0.9 %; Immature Granulocytes Absolute 0.18 #; Lymphocytes # 1.7 10*3/uL (1.4-4.0); Lymphocytes % 8.3 % (21.2-54.2); Mean Corpuscular HGB Conc 31.9 GM/DL (32-36); Mean Platelet Volume 10.1 FL (9.6-12.0); Monocytes # 1.7 10*3/uL (0.11-0.8); Monocytes % 8.6 % (1.7-12.7); Platelet Count 254 T/CUMM (130-400); Red Cell Distribution Width 13.3 % (9.3-17.3); White Blood Count 19.8 T/CUMM (4-12)
[2021-08-20 03:56] LABS: Albumin 2.8 G/DL (3.4-5.0); Bilirubin,Direct 0.26 MG/DL (0.0-0.20); Bilirubin,Total 0.7 MG/DL (0.20-1.00); Calcium 8.1 MG/DL (8.5-10.1); Osmolality,Calculated 293.3 MOS/KG (273-304); Potassium 4.4 MMOL/L (3.5-5.1); Total Protein 6.3 G/DL (6.4-8.2)
[2021-08-20 04:11] LABS: Alanine Aminotransferase 160 U/L (16-61); Albumin 2.8 G/DL (3.4-5.0); Alkaline Phosphatase 62 U/L (45-117); Aspartate Amino Transferase 103 U/L (0-37); Bilirubin,Indirect 0.4 MG/DL (0.0-1.0); Total Protein 5.8 G/DL (6.4-8.2)
[2021-08-20] MEDS ORDERED: FUROSEMIDE 40 MG/4 ML VIAL IV ONE (06:00)
[2021-08-20] MEDS: glipiZIDE 5 MG TABLET PO SCH (07:58)
[2021-08-20] MEDS: INSULIN GLARGINE 100 UNIT/ML SUBCUT SCH ×2 (07:58→09:50)
[2021-08-20] MEDS: AMIODARONE 200 MG TABLET PO SCH ×2 (07:59→20:33)
[2021-08-20] MEDS: APIXABAN 5 MG TABLET PO SCH ×2 (09:05→20:33)
[2021-08-20] MEDS: AZITHROMYCIN 250 MG TABLET PO SCH (09:05)
[2021-08-20] MEDS: DOCUSATE SODIUM 100 MG CAPSULE PO SCH (09:05)
[2021-08-20] MEDS: FAMOTIDINE 20 MG TABLET PO SCH ×2 (09:05→20:33)
[2021-08-20] MEDS: carvediloL 3.125 MG TABLET PO SCH ×2 (09:05→20:33)
[2021-08-20] MEDS: CHLORHEXIDINE 0.12% ORAL RINSE 60 ML BOTTLE SWISH/SPIT SCH ×2 (09:05→20:34)
[2021-08-20] MEDS: CHOLECALCIFEROL 1,000 UNIT TABLET PO SCH (09:05)
[2021-08-20] MEDS: FERROUS SULFATE 325 MG TABLET PO SCH (09:05)
[2021-08-20] MEDS: ROSUVASTATIN 20 MG TABLET PO SCH (09:05)
[2021-08-20] MEDS: DAPAGLIFLOZIN 10 MG TABLET PO SCH (09:05)
[2021-08-20] MEDS: ASPIRIN EC 81 MG TABLET PO SCH (09:05)
[2021-08-20] MEDS: SPIRONOLACTONE 25 MG TABLET PO SCH (09:05)
[2021-08-20] MEDS: ASCORBIC ACID 500 MG TABLET PO SCH ×2 (09:05→20:33)
[2021-08-20] MEDS: INSULIN REGULAR 100 UNIT/ML SUBCUT SCH ×4 (09:47→20:34)
[2021-08-20] MEDS: oxyCODONE/ACETAMINOPHEN 5-325 MG TABLET PO PRN (17:07)
[2021-08-21 04:30] LABS: Basophils # 0.1 10*3/uL (0.0-0.2); Basophils % 0.2 % (0.0-0.8); Eosinophils % 0.1 % (0.00-10.9); Hematocrit 37.9 VOL% (42.0-52.0); Immature Granulocytes % 1.2 %; Immature Granulocytes Absolute 0.25 #; Lymphocytes # 2.3 10*3/uL (1.4-4.0); Lymphocytes % 11.3 % (21.2-54.2); Mean Corpuscular HGB Conc 31.7 GM/DL (32-36); Mean Corpuscular Volume 92.4 FL (87-102); Mean Platelet Volume 9.8 FL (9.6-12.0); Monocytes # 1.6 10*3/uL (0.11-0.8); Monocytes % 7.8 % (1.7-12.7); NRBC # 0.03 10*3/uL; Neutrophils % 79.4 % (38.7-73.9); Platelet Count 334 T/CUMM (130-400); Red Cell Distribution Width 13.3 % (9.3-17.3); White Blood Count 20.4 T/CUMM (4-12)
[2021-08-21 04:55] LABS: Alanine Aminotransferase 156 U/L (16-61); Albumin 2.8 G/DL (3.4-5.0); Alkaline Phosphatase 62 U/L (45-117); Aspartate Amino Transferase 77 U/L (0-37); Bilirubin,Indirect 0.7 MG/DL (0.0-1.0); Blood Urea Nitrogen 23 MG/DL (7-18); Calcium 8.5 MG/DL (8.5-10.1); Carbon Dioxide 29 MMOL/L (21-32); Chloride 102 MMOL/L (98-107); Glucose 222 MG/DL (74-106); Osmolality,Calculated 280.1 MOS/KG (273-304); Potassium 4.1 MMOL/L (3.5-5.1); Sodium 135 MMOL/L (136-145); Total Protein 6.7 G/DL (6.4-8.2)
[2021-08-21 05:00] LABS: Lymphocytes 10 % (20-55); Platelet Estimate Normal; Total Cells Counted 100
[2021-08-21] MEDS: INSULIN REGULAR 100 UNIT/ML SUBCUT SCH ×2 (08:00→12:17)
[2021-08-21] MEDS: AMIODARONE 200 MG TABLET PO SCH (08:00)
[2021-08-21] MEDS: glipiZIDE 5 MG TABLET PO SCH (08:00)
[2021-08-21] MEDS ORDERED: SACUBITRIL/VALSARTAN 49-51 MG TABLET PO SCH (09:00)
[2021-08-21] MEDS: AZITHROMYCIN 250 MG TABLET PO SCH (09:15)
[2021-08-21] MEDS: ASPIRIN EC 81 MG TABLET PO SCH (09:15)
[2021-08-21] MEDS: SPIRONOLACTONE 25 MG TABLET PO SCH (09:15)
[2021-08-21] MEDS: FERROUS SULFATE 325 MG TABLET PO SCH (09:15)
[2021-08-21] MEDS: ASCORBIC ACID 500 MG TABLET PO SCH (09:15)
[2021-08-21] MEDS: DOCUSATE SODIUM 100 MG CAPSULE PO SCH (09:15)
[2021-08-21] MEDS: DAPAGLIFLOZIN 10 MG TABLET PO SCH (09:15)
[2021-08-21] MEDS: ROSUVASTATIN 20 MG TABLET PO SCH (09:15)
[2021-08-21] MEDS: INSULIN GLARGINE 100 UNIT/ML SUBCUT SCH (09:15)
[2021-08-21] MEDS: FAMOTIDINE 20 MG TABLET PO SCH (09:15)
[2021-08-21] MEDS: APIXABAN 5 MG TABLET PO SCH (09:15)
[2021-08-21] MEDS: carvediloL 3.125 MG TABLET PO SCH (09:15)
[2021-08-21] MEDS: CHLORHEXIDINE 0.12% ORAL RINSE 60 ML BOTTLE SWISH/SPIT SCH (09:15)
[2021-08-21] MEDS: CHOLECALCIFEROL 1,000 UNIT TABLET PO SCH (09:15)
== END 2021-08-21 14:35 | disposition home health service (06) | DRG 233 ==
LOC: EDBD → EDUNIT# → N.ED 10:17 → N.EDINP 11:45 → SUATTDRO 11:45 → N.EDINP 14:40 → N.TELEN 15:09 → N.CVR 08-17 12:13 → N.ICU 08-18 14:37
PROVIDERS: ADMIT Internal Medicine; ATTEND Family Medicine